=== PATIENT | female | born 1985 | race Hispanic/Latino ===

== ENCOUNTER 2018-03-02 13:20 | Emergency (ER) | payer MEDICARE ==
[2018-03-02] MEDS ORDERED: PEPCID IV ONE (13:42)
[2018-03-02] MEDS ORDERED: SOLU-Medrol IV ONE (13:42)
[2018-03-02] MEDS ORDERED: BENADRYL IV ONE (13:42)
--- NOTE | 2018-03-02 14:14 | Emergency Department Report ---
HPI - General Chief Complaint: Allergic Reaction Time Seen by Provider: 03/02/18 13:42 - HPI HPI: 32 yo Female with a past medical history heroin abuse currently at the [facility] receiving psychiatric treatment presents to the Hospital complaining of right-sided neck stiffness and right-sided tongue stiffness. She feels like her throat is closing. She took a "sleep medication" last night and started with a spirit is her first she has taken his medication. Patient began to have the muscle stiffness at 9 AM and progressively worsened. Patient is anxious and states she is nervous. Denies previous history of allergic reaction ED Past Medical Hx - Past Medical History Previous Medical History?: Yes Additional medical history: uses herion - Surgical History Past Surgical History?: No - Social History Smoking Status: Current Every Day Smoker Substance Use Type: Heroin - Medications Home Medications: Home Medications Medication Instructions Recorded Confirmed Last Taken Type diphenhydrAMINE [Benadryl CAP] 50 mg PO Q8HR PRN #30 capsule 03/02/18 Unknown Rx ED Review of Systems ROS: Stated complaint: ALLERGIC REACTION Other details as noted in HPI Comment: All other systems reviewed and negative Physical Exam - Physical Exam Vital Signs: Vital Signs 03/02/18 13:25 Temperature 98.4 F Pulse Rate 125 H Respiratory 20 Rate Blood Pressure 133/91 O2 Sat by Pulse 99 Oximetry Physical Exam: General: No limitations, patient is alert in no acute distress Head exam: Atraumatic, normocephalic Eyes exam: Normal appearance, pupils equal reactive to light, extraocular movements intact ENT: Moist mucous membrane, normal oropharynx without swelling. No tongue edema. Neck exam: Normal inspection, full range of motion despite complaint of right- sided stiffness, no meningismus No stridor Respiratory exam: Clear to auscultation bilateral, no wheezes, rales, crackles Cardiovascular: Normal rate and rhythm, normal heart sounds Abdomen: Soft, nondistended, and nontender, with normal bowel sounds, no rebound, or guarding Extremity: Full range of motion normal inspection no deformity Back: Normal Inspection, full range of motion, no tenderness Neurologic: Alert, oriented x3, cranial nerves intact, no motor or sensory deficit Psychiatric: normal affect, normal mood Skin: Warm, dry, intact ED Course Vital Signs 03/02/18 13:25 Temperature 98.4 F Pulse Rate 125 H Respiratory 20 Rate Blood Pressure 133/91 O2 Sat by Pulse 99 Oximetry - Reevaluation(s) Reevaluation #1: 03/02/18 15:47 Received Benadryl, Pepcid, and Solu-Medrol. Patient states that muscle stiffness has improved. Patient has residual muscle soreness. ED Medical Decision Making - Medical Decision Making Patient had a dystonic reaction after medication that starts with a "H". Symptoms likely secondary to dystonic reaction to antipsychotic. Benadryl when necessary will be prescribed - Differential Diagnosis allergic reaction, dystonic reaction Critical Care Time: No Critical care attestation.: If time is entered above; I have spent that time in minutes in the direct care of this critically ill patient, excluding procedure time. ED Disposition Clinical Impression: Dystonic drug reaction Disposition: - TO HOME OR SELFCARE Is pt being admited?: No Does the pt Need Aspirin: No Condition: Stable Instructions: Spasmodic Torticollis (ED) Additional Instructions: Take the medication as prescribed. Follow up with your doctor. Return if symptoms worsen as indicated by your discharge instructions Prescriptions: diphenhydrAMINE [Benadryl CAP] 50 mg PO Q8HR PRN #30 capsule PRN Reason: Muscle Spasm Referrals: PRIMARY CARE, [Primary Care Provider] - 3-5 Days [facility] [Provider Group] - 3-5 Days Time of Disposition: 16:00
[2018-03-02 15:56] VITALS: BP 134/78
== END 2018-03-02 16:09 | disposition home or self-care (01) ==
LOC: ED 13:20
DX: M43.6 Torticollis (principal); T43.505A Adverse effect of unspecified antipsychotics and neuroleptics, initial encounter; F17.200 Nicotine dependence, unspecified, uncomplicated; F11.90 Opioid use, unspecified, uncomplicated; Y92.89 Other specified places as the place of occurrence of the external cause
CPT/HCPCS: 96374; 96375; 99282; J1200; J2930